=== PATIENT | female | born 1975 | race Caucasian/White ===

== ENCOUNTER → 2016-08-04 | Outpatient (CLI) | payer BC ==
[2016-08-04 13:33] LABS: BASOPHILS # (AUTO) 0.03 10*3/UL; BASOPHILS % (AUTO) 0.3 % (0-1); EOSINOPHILS # (AUTO) 0.04 10*3/UL; EOSINOPHILS % (AUTO) 0.4 % (0-8); HEMATOCRIT 37.6 % (37.0-47.0); HEMOGLOBIN 12.5 g/dL (12.0-16.0); LYMPHOCYTES # (AUTO) 2.26 10*3/uL; MEAN CORPUSCULAR HEMOGLOBIN 30.6 PG (27-31); MEAN CORPUSCULAR HGB CONC 33.2 g/dL (33-37); MEAN CORPUSCULAR VOLUME 91.9 FL (81-99); MEAN PLATELET VOLUME 10.1 FL (7.4-12.2); MONOCYTES # (AUTO) 0.76 10*3/UL (0.3-0.8); MONOCYTES % (AUTO) 7.3 % (5-15); NEUTROPHILS # (AUTO) 7.25 10*3/UL; NEUTROPHILS % (AUTO) 69.9 % (50-80); RED BLOOD COUNT 4.09 10^6/uL (4.20-5.40)
[2016-08-04 13:34] LABS: PLATELET MORPHOLOGY COMMENT NORMAL MORPHOLOGY (NORM); RBC MORPHOLOGY COMMENT NORMAL MORPHOLOGY (NORM); WBC MORPHOLOGY COMMENT NORMAL MORPHOLOGY (NORM)
[2016-08-04 14:03] LABS: BLOOD UREA NITROGEN 14 mg/dL (7-22); BUN/CREATININE RATIO 15.55 (6-20); CALCIUM 7.7 mg/dL (8.7-10.7); EST GLOMERULAR FILTRATION > 60 (>60 ml/min/1.73m(2)); MAGNESIUM 1.9 mg/dL (1.6-2.4); SERUM ALBUMIN 2.3 g/dL (3.5-4.8)
[2016-08-04 14:26] LABS: FREE T4 (FREE THYROXINE) 2.19 ng/dL (0.93-1.71)
== END ==
LOC: MOB LAB 11:24
PROVIDERS: ATTEND Physician Assistant Medical
DX: R55 Syncope and collapse (principal); R10.84 Generalized abdominal pain; R53.83 Other fatigue; R53.1 Weakness; E78.5 Hyperlipidemia, unspecified; R60.0 Localized edema
CPT/HCPCS: 36415; 80053; 82306; 82607; 82746; 83540; 83550; 83735; 84439; 84443; 84590; 84591; 84597; 85025

== ENCOUNTER → 2016-08-15 | Outpatient (CLI) | payer BC ==
[2016-08-15 14:18] LABS: SERUM ALBUMIN 2.4 g/dL (3.5-4.8)
== END ==
LOC: MOB LAB 11:54
PROVIDERS: ATTEND Internal Medicine
DX: E46 Unspecified protein-calorie malnutrition (principal); E88.09 Other disorders of plasma-protein metabolism, not elsewhere classified; Z98.84 Bariatric surgery status
CPT/HCPCS: 36415; 80076; 84481

== ENCOUNTER → 2016-09-12 | Outpatient (CLI) | payer BC ==
[2016-09-12 15:30] LABS: BLOOD UREA NITROGEN 12 mg/dL (7-22); CALCIUM 7.2 mg/dL (8.7-10.7); EST GLOMERULAR FILTRATION > 60 (>60 ml/min/1.73m(2)); SERUM ALBUMIN 1.9 g/dL (3.5-4.8)
== END ==
LOC: MOB LAB 14:19
PROVIDERS: ATTEND Internal Medicine
DX: E46 Unspecified protein-calorie malnutrition (principal); Z98.84 Bariatric surgery status
CPT/HCPCS: 36415; 80053

== ENCOUNTER → 2016-09-21 | Outpatient (CLI) | payer BC ==
[2016-09-21 11:02] LABS: HEMATOCRIT 28.4 % (37.0-47.0); HEMOGLOBIN 8.8 g/dL (12.0-16.0); MEAN CORPUSCULAR HEMOGLOBIN 30.7 PG (27-31); MEAN PLATELET VOLUME 10.5 FL (7.4-12.2); RED BLOOD COUNT 2.87 10^6/uL (4.20-5.40)
[2016-09-21 11:30] LABS: BLOOD UREA NITROGEN 10 mg/dL (7-22); EST GLOMERULAR FILTRATION > 60 (>60 ml/min/1.73m(2))
[2016-09-21 11:31] LABS: CALCIUM 7.6 mg/dL (8.7-10.7); MAGNESIUM 2.1 mg/dL (1.6-2.4); PHOSPHORUS 3.6 mg/dl (2.4-4.3); SERUM ALBUMIN 2.1 g/dL (3.5-4.8)
== END ==
LOC: MOB LAB 10:38
PROVIDERS: ATTEND Internal Medicine
DX: E46 Unspecified protein-calorie malnutrition (principal)
CPT/HCPCS: 80053; 83735; 84100; 84134; 85027

== ENCOUNTER → 2016-09-28 | Outpatient (CLI) | payer BC ==
[2016-09-28 11:39] LABS: HEMOGLOBIN 9.7 g/dL (12.0-16.0); MEAN CORPUSCULAR HEMOGLOBIN 31.5 PG (27-31); MEAN CORPUSCULAR HGB CONC 31.3 g/dL (33-37); MEAN CORPUSCULAR VOLUME 100.6 FL (81-99); MEAN PLATELET VOLUME 9.8 FL (7.4-12.2); RED BLOOD COUNT 3.08 10^6/uL (4.20-5.40)
[2016-09-28 11:42] LABS: BLOOD UREA NITROGEN 15 mg/dL (7-22); CALCIUM 8.7 mg/dL (8.7-10.7); EST GLOMERULAR FILTRATION > 60 (>60 ml/min/1.73m(2)); PHOSPHORUS 4.3 mg/dl (2.4-4.3); SERUM ALBUMIN 3.2 g/dL (3.5-4.8)
== END ==
LOC: MOB LAB 10:50
PROVIDERS: ATTEND Surgery
DX: E46 Unspecified protein-calorie malnutrition (principal)
CPT/HCPCS: 80053; 84100; 85027

== ENCOUNTER → 2016-10-05 | Outpatient (CLI) | payer BC ==
[2016-10-05 12:25] LABS: BLOOD UREA NITROGEN 15 mg/dL (7-22); CALCIUM 8.9 mg/dL (8.7-10.7); EST GLOMERULAR FILTRATION > 60 (>60 ml/min/1.73m(2)); MAGNESIUM 1.9 mg/dL (1.6-2.4); PHOSPHORUS 5.2 mg/dl (2.4-4.3); SERUM ALBUMIN 3.4 g/dL (3.5-4.8)
[2016-10-05 12:28] LABS: HEMOGLOBIN 9.8 g/dL (12.0-16.0); RED BLOOD COUNT 3.19 10^6/uL (4.20-5.40)
[2016-10-05 12:29] LABS: HEMATOCRIT 31.9 % (37.0-47.0); MEAN CORPUSCULAR HEMOGLOBIN 30.7 PG (27-31); MEAN CORPUSCULAR HGB CONC 30.7 g/dL (33-37); MEAN PLATELET VOLUME 10.1 FL (7.4-12.2)
== END ==
LOC: LAB 11:57
PROVIDERS: ATTEND Surgery
DX: E46 Unspecified protein-calorie malnutrition (principal)
CPT/HCPCS: 80053; 83735; 84100; 85027

== ENCOUNTER → 2016-10-12 | Outpatient (CLI) | payer BC ==
[2016-10-12 12:23] LABS: HEMOGLOBIN 9.8 g/dL (12.0-16.0); MEAN CORPUSCULAR HEMOGLOBIN 30.2 PG (27-31); MEAN CORPUSCULAR HGB CONC 30.6 g/dL (33-37); MEAN CORPUSCULAR VOLUME 98.5 FL (81-99); MEAN PLATELET VOLUME 10.5 FL (7.4-12.2); RED BLOOD COUNT 3.25 10^6/uL (4.20-5.40)
[2016-10-12 12:33] LABS: BLOOD UREA NITROGEN 16 mg/dL (7-22); CALCIUM 8.7 mg/dL (8.7-10.7); EST GLOMERULAR FILTRATION > 60 (>60 ml/min/1.73m(2)); MAGNESIUM 1.9 mg/dL (1.6-2.4); SERUM ALBUMIN 3.2 g/dL (3.5-4.8)
== END ==
LOC: LAB 11:51
PROVIDERS: ATTEND Surgery
DX: E46 Unspecified protein-calorie malnutrition (principal)
CPT/HCPCS: 80053; 83735; 84100; 84630; 85027

== ENCOUNTER 2016-10-27 18:22 | Emergency (ER) | payer BC ==
[2016-10-27] MEDS ORDERED: Sodium Chloride 0.9% 1,000 ML PRIMARY IV ONE (18:35)
[2016-10-27] MEDS ORDERED: NORMAL SALINE 10 ML SYRINGE FLUSH IVP PRN (18:35)
[2016-10-27 19:03] LABS: BASOPHILS # (AUTO) 0.08 10*3/UL; BASOPHILS % (AUTO) 1.2 % (0-1); EOSINOPHILS # (AUTO) 0.24 10*3/UL; EOSINOPHILS % (AUTO) 3.6 % (0-8); HEMATOCRIT 28.2 % (37.0-47.0); HEMOGLOBIN 8.7 g/dL (12.0-16.0); MEAN CORPUSCULAR HEMOGLOBIN 28.7 PG (27-31); MEAN CORPUSCULAR HGB CONC 30.9 g/dL (33-37); MEAN CORPUSCULAR VOLUME 93.1 FL (81-99); MEAN PLATELET VOLUME 9.8 FL (7.4-12.2); MONOCYTES # (AUTO) 0.73 10*3/UL (0.3-0.8); RED BLOOD COUNT 3.03 10^6/uL (4.20-5.40)
[2016-10-27 19:06] LABS: PLATELET MORPHOLOGY COMMENT NORMAL MORPHOLOGY (NORM); RBC MORPHOLOGY COMMENT NORMAL MORPHOLOGY (NORM); WBC MORPHOLOGY COMMENT NORMAL MORPHOLOGY (NORM)
--- NOTE | 2016-10-27 19:10 | EKG ---
[address] [address] Measurements Intervals [place] Rate: 118 P: 67 [place]: 130 QRS: 65 QRSD: 74 T: 52 QT: 301 QTc: 371 Interpretive Statements SINUS TACHYCARDIA POSSIBLE LEFT ATRIAL ENLARGEMENT ABNORMAL RHYTHM ECG No previous ECG available for comparison Electronically Signed On 10-27-16 19:48:13 MDT by Graham Ann [id number]
[2016-10-27 19:14] LABS: BLOOD UREA NITROGEN 11 mg/dL (7-22); CALCIUM 8.8 mg/dL (8.7-10.7); EST GLOMERULAR FILTRATION > 60 (>60 ml/min/1.73m(2)); MAGNESIUM 1.8 mg/dL (1.6-2.4); SERUM ALBUMIN 3.1 g/dL (3.5-4.8)
[2016-10-27] MEDS ORDERED: BUMETANIDE 1 MG TABLET PO ONE (20:02)
[2016-10-27 20:06] VITALS: RESP 18; TEMP 98.4
--- NOTE | 2016-10-27 21:33 | PDOC ---
General Adult HPI - General Chief Complaint: General Medical Stated Complaint: RETAINING FLUID, PCP SAYS LOW HEMOGLOBIN Date Seen by Provider: 10/27/16 Time Seen by Provider: 18:25 Source: POSITIVE: Patient, Spouse Exam Limitations: POSITIVE: No limitations Nurse's Notes Reviewed & Considered: Yes - History of Present Illness Initial Comment: The patient is a 41-year-old female who presents to the emergency department primarily because of concern of a low hemoglobin done on a blood draw yesterday. She also is retaining extra fluid. She has been struggling with malnutrition and has a history of previous gastric bypass surgery 7 years ago. She reports that in September of this year she was hospitalized at [facility] in [place] and started on TPN. Dr. Garcia, the bariatric surgeon in [place], has been managing her TPN. She reports that she has had swelling in her lower extremities intermittently for the past 9 months or so. Her swelling had improved significantly when she was in the hospital in [place] however over the past couple of weeks has gradually been getting worse. Over the last 24 hours she has had marked worsening in her edema which now extends into her upper legs and even to her arms. She had routine blood work done for follow-up on her TPN yesterday. Her hemoglobin was reported at 6.2. It was recommended that she be evaluated here in the emergency room. She denies any blood in her urine or stool. She has had previous hysterectomy. She is unaware of recent issues with anemia. Have you received a tetanus shot in the past 10 years?: Yes - Patient Home Medications Home Medications: Home Medications Cyanocobalamin Inj [Vitamin B-12 Inj] 1 ml IM 2XW #1 vial 11/10/15 Estradiol [Estradiol Transdermal Patch] 1 patch TRANSDERM 2XW #8 patch 11/10/15 Tizanidine HCl 1 cap PO QD #90 cap 11/10/15 Amitriptyline HCl 2 tab PO QHS tab 06/24/16 Ketorolac Tromethamine 60 mg IM QID PRN #20 vial 06/24/16 Promethazine HCl 1 tab-cap PO Q4H PRN #60 tab-cap 06/24/16 Rizatriptan Benzoate [Maxalt] 10 mg PO DAILY #12 tab 06/24/16 Syringe W-Needle,Disposab,3 ml [Precisionglide] 1 each MC QD PRN #10 box Triamcinolone Acetonide 454 gm TOPICAL BID #1 tub 10/25/16 Bumetanide Tab [Bumex Tab] 1 mg PO DAILY #20 tablet 10/27/16 Potassium Chloride 10 meq PO DAILY #20 tab 10/27/16 - Patient Allergies Allergies/Adverse Reactions: Allergies Allergy/AdvReac Type Severity Reaction Status Date / Time ferumoxytol [From Feraheme] Allergy Severe Anaphylaxis Verified 10/27/16 19:36 clarithromycin [From Biaxin] Allergy Intermediate NAUSEA Verified 10/27/16 19:36 furosemide [From Lasix] Allergy Intermediate HIVES Verified 10/27/16 19:36 Penicillins Allergy Intermediate RASH Verified 10/27/16 19:36 acetazolamide AdvReac Intermediate nausea, Verified 10/27/16 19:36 [From Diamox Sequels] vomiting Pain Contract AdvReac Unknown NOT Uncoded 10/27/16 19:36 APPLICABLE Past Medical History - heen HEENT History: Denies History Cardiovascular History: Denies History Respiratory History: Denies History Gastrointestinal History: Other (please comment) Additional Gastrointestinal History: BARIATRIC SURGERY IN 2009, DUODENAL SWITCH Genitourinary History: Denies History Endocrine History: Type 2 Diabetes (diet), Other (please comment) Additional Endocrine History: TYPE 2 DIABETES WHEN SHE WAS OBESE PRIOR TO BARIATRIC SURGERY Musculoskeletal History: Denies History Prosthesis or Implant: No Additional Musculoskeletal History: PT STATES "HAS HAD MIGRAINES SINCE I WAS A YOUNG GIRL" Neurological History: Migraines Blood Disorders: Denies History Psychiatric History: Depression, Anxiety Disorders Additional Psychiatric History: ANOREXIA History of Sexually Transmitted Diseases: No Female Reproductive History: Denies History Obstetrical History: Denies History Cancer History: Denies History In Past Year Been Physically Harmed or Verbally Threatened: No History of MDRO: No History of Other Communicable Diseases: No Tobacco Use: Current Every Day Smoker Alcohol Use: None Substance Use Type: None Previous Surgical History: Yes Type / Date of Surgery: ABOVE Anesthesia Reactions: No Malignant Hyperthermia: No Significant Family History: No pertinent family hx Past Medical History Reviewed: Reviewed - No Changes ROS - Limitations ROS Limitations: No Limitations Constitution: DENIES: Chills, Fever Cardiovascular: REPORTS: Heart Palpitations Respiratory: REPORTS: Shortness Of Breath Neurological: REPORTS: Dizziness. DENIES: Fainting Gastrointestinal: DENIES: Abdominal Pain, Vomitting, Black Stools, Bloody Stools Musculoskeletal: REPORTS: Lower Extremity Swelling Eyes: REPORTS: Denies Symptoms ENT: REPORTS: Denies Symptoms Skin: REPORTS: Rash (Chronic rash for the past 6 months) General Adult Exam - General Appearance General Appearance: POSITIVE: Alert, Cooperative, No Acute Distress, Other (She does appear chronically ill and pale) - HEENT HEENT: POSITIVE: Head Inspection Nml, Eyes Inspection Nml, Ears Inspection Nml, Pharynx Inspect. Nml - Neck Neck: POSITIVE: Normal Inspection - Respiratory Respiratory: POSITIVE: No Respiratory Distress, Breath Sounds Normal - Cardiovascular Cardiovascular: POSITIVE: Regular Rate & Rhythm, No Murmur Peripheral Pulses: Dorsalis-pedis (R): 2+, Dorsalis-pedis (L): 2+ - Abdomen Abdomen: Soft: (All Quadrants), Denies Tenderness: (All Quadrants), No Distention: (All Quadrants) - Skin Skin: POSITIVE: Pallor - Extremities Extremity: Normal ROM: (All Extremities) Additional Extremities Details: She does have marked edema in the lower extremities and some edema in her upper extremities - Neurological / Psychological Neurological: POSITIVE: Oriented X3, Motor Normal, Sensation Normal General Adult Progress - Results Reviewed by me Lab Results Reviewed: Yes Lab Results:: Laboratory Results 10/27/16 Range/Units 18:54 WBC 6.66 (4.8-10.8) 10^3/uL RBC 3.03 L (4.20-5.40) 10^6/uL Hgb 8.7 L (12.0-16.0) g/dL Hct 28.2 L (37.0-47.0) % MCV 93.1 (81-99) FL MCH 28.7 (27-31) PG MCHC 30.9 L (33-37) g/dL RDW Std Deviation 48.3 (39-50) fL RDW Coeff of [place] 14.8 H (11.5-14.5) % Plt Count 358 H (140-350) 10*3/uL MPV 9.8 (7.4-12.2) FL Immature Gran % (Auto) 0.2 (0-5) % Neut % (Auto) 57.0 (50-80) % Lymph % (Auto) 27.0 (10-50) % [place] % (Auto) 11.0 (5-15) % Eos % (Auto) 3.6 (0-8) % Baso % (Auto) 1.2 H (0-1) % Immature Gran # (Auto) 0.01 10*3/UL Neut # (Auto) 3.80 10*3/UL Lymph # (Auto) 1.80 10*3/uL [place] # (Auto) 0.73 (0.3-0.8) 10*3/UL Eos # (Auto) 0.24 10*3/UL Baso # (Auto) 0.08 10*3/UL WBC Morphology Comment Normal morphology (NORM) Plt Morphology Comment Normal morphology (NORM) RBC Morph Comment Normal morphology (NORM) Sodium 137 (135-145) meq/L Potassium 3.9 (3.8-5.2) meq/L Chloride 105 (98-112) meq/L Carbon Dioxide 27 (23-33) meq/L Anion Gap 5 (5-20) BUN 11 (7-22) mg/dL Creatinine 0.5 (0.50-1.20) mg/dL Estimated GFR > 60 (>60 ml/min/1.73m(2)) BUN/Creatinine Ratio 22.00 H (6-20) Glucose 90 (78-110) mg/dL Calculated Osmolality 282.0 (267-292) mOsm/kg Calcium 8.8 (8.7-10.7) mg/dL Magnesium 1.8 (1.6-2.4) mg/dL Total Bilirubin 0.2 L (0.3-1.2) mg/dL AST 18 (8-39) IU/L ALT 30 (9-52) IU/L Alkaline Phosphatase 61 (38-126) IU/L NT-Pro-B Natriuret Pep 198 H (0-125) PG/ML Total Protein 5.7 L (6.1-8.0) g/dL Albumin 3.1 L (3.5-4.8) g/dL Globulin 2.6 (2.50-4.10) g/dL Albumin/Globulin Ratio 1.10 L (1.3-2.0) mg/g TSH 1.49 (0.2700-4.2000) uIU/mL Blood Type B POSITIVE Antibody Screen Negative Crossmatch See Detail EKG Interpreted/Reviewed By Me:: Yes EKG Interpretation:: POSITIVE: Normal Intervals, Normal QRS, Normal ST/T, Other (Sinus tachycardia with no acute changes otherwise) - Patient's Progress MDM / ED Course: The patient's hemoglobin done yesterday was 6.2. Repeat blood work was obtained and she was typed and crossed. Blood work from today however reveals a hemoglobin of 8.7. Review of recent labs reveals that for the past several months she has had a hemoglobin of 8.6-9. The remainder of her blood work from today is otherwise unremarkable except for low protein and albumin which has been an ongoing issue as well. The hemoglobin of 6.2 yesterday at this point appears to most likely be an error. She is chronically anemic however she is not at a level that would necessitate blood transfusion at this time. She also has marked edema in her extremities. The exact etiology of this is unclear however may be related to her malnutrition and TPN. She has a reported allergy to Lasix. This was discontinued last fall secondary to a rash that she had. She reports however that she continues to have a rash ever since then and it is unclear to me whether this was actually an allergic reaction to the Lasix or not. After discussion with the patient we decided to try Bumex as a diuretic. She was given a dose of 1 mg by mouth here in the emergency room. She was monitored here and demonstrated no evidence of allergic reaction. She was prescribed Bumex 1 mg daily along with potassium 10 mEq daily. She routinely has her blood checked on Wednesdays. She is advised to contact Dr. Garcia's office tomorrow and will follow-up with Dr. Velásquez next week as well. She will return to the emergency room if any worsening or change in symptoms. - Consult Counseled: POSITIVE: Patient, Family, RE: Lab Results, RE: DX, RE: Need for F/U Patient Care Time - Estimated PCT Patient Care Time (In Minutes): 35 Vital Signs - Recent Vital Signs Vital Signs: Vital Signs (Last 8 hours) Temp Pulse Resp BP Pulse Ox 10/27/16 18:22 98.4 F 122 H 18 116/70 97 - VS Reviewed Vital Signs Reviewed: Yes Discharge Clinical Impression: Anemia, Edema Discharge Disposition: Discharged to Home Condition: Stable Prescriptions / Orders: Bumetanide Tab [Bumex Tab] 1 mg PO DAILY #20 tablet Potassium Chloride 10 meq PO DAILY #20 tab Patient Instructions Given at Discharge: Anemia (ED), Edema (ED) Additional Instructions: The blood test done here in the emergency department today shows a hemoglobin of 8.7. This level is consistent with where your level has been for the past several months. I suspect that sure measurement of 6.2 yesterday may have been an error. The remainder of your blood work was unremarkable with normal electrolytes, kidney function and liver function. Your protein levels remain low from the malnutrition. The exact cause of your swelling is unclear however is likely related to the malnutrition and possibly the TPN. He had been started on Bumex 1 mg daily which is a diuretic. This will need to be taken with potassium 10 mEq daily. This will hopefully help with some of the extra swelling that you currently have. Recommend that she contact Dr. Garcia tomorrow to discuss the TPN issue. Recommend follow-up with Dr. Velásquez next week. Return to the emergency room if any worsening or change in symptoms. Follow Up With: EDUARDO VELÁSQUEZ [Primary Care Provider] -
[2016-10-28] MEDS ORDERED: Sodium Chloride 0.9% 1,000 ML ONE (05:52)
== END 2016-10-27 20:50 | disposition home or self-care (01) ==
LOC: ER 18:22
DX: R60.0 Localized edema (principal); D64.9 Anemia, unspecified
CPT/HCPCS: 80053; 83735; 83880; 84443; 85025; 86850; 86900; 86901; 86922; 93005; 93010; 99283; J7030

== ENCOUNTER → 2016-11-02 | Outpatient (CLI) | payer BC ==
[2016-11-02 17:49] LABS: HEMATOCRIT 32.3 % (37.0-47.0); HEMOGLOBIN 10.2 g/dL (12.0-16.0); MEAN CORPUSCULAR HEMOGLOBIN 28.5 PG (27-31); MEAN CORPUSCULAR HGB CONC 31.6 g/dL (33-37); MEAN CORPUSCULAR VOLUME 90.2 FL (81-99); RED BLOOD COUNT 3.58 10^6/uL (4.20-5.40)
[2016-11-02 18:28] LABS: BLOOD UREA NITROGEN 3 mg/dL (7-22); CALCIUM 8.6 mg/dL (8.7-10.7); EST GLOMERULAR FILTRATION > 60 (>60 ml/min/1.73m(2)); MAGNESIUM 2.1 mg/dL (1.6-2.4); SERUM ALBUMIN 3.5 g/dL (3.5-4.8)
== END ==
LOC: LAB 16:47
PROVIDERS: ATTEND Surgery
DX: E46 Unspecified protein-calorie malnutrition (principal); Z45.2 Encounter for adjustment and management of vascular access device
CPT/HCPCS: 80053; 83735; 84100; 84134; 85027

== ENCOUNTER 2018-03-12 16:15 | Inpatient (IN) ==
[2018-03-12] MEDS ORDERED: Sodium Chloride 0.9% 1,000 ML PRIMARY IV ONE (16:33)
[2018-03-12] MEDS ORDERED: IPRATROPIUM/ALBUTEROL SULFATE 3 ML NEB NEB ONE ×3 (16:35→19:56)
[2018-03-12] MEDS ORDERED: methylPREDNISolone 125 MG/2 ML VIAL IVP ONE (16:35)
[2018-03-12 16:58] LABS: Hematocrit [HCT] 26.4 % (37.0-47.0); Hemoglobin [HGB] 7.2 g/dL (12.0-16.0); MEAN CORPUSCULAR HEMOGLOBIN 17.6 PG (27-31); MEAN CORPUSCULAR HGB CONC 27.3 g/dL (33-37); MEAN CORPUSCULAR VOLUME 64.7 FL (81-99); MEAN PLATELET VOLUME 9.7 FL (7.4-12.2); RED BLOOD COUNT 4.08 10^6/uL (4.20-5.40)
[2018-03-12 17:13] LABS: WBC MORPHOLOGY COMMENT NORMAL MORPHOLOGY (NORM)
[2018-03-12 17:14] LABS: BAND NEUTROPHILS % 0 % (0-10); MONOCYTES % (MANUAL) 5 % (0-12); NEUTROPHILS % (MANUAL) 69 % (50-80); PLATELET MORPHOLOGY COMMENT SEE COMMENTS (NORM); RBC MORPHOLOGY COMMENT NORMAL MORPHOLOGY (NORM)
[2018-03-12 17:15] LABS: BASOPHILS % (MANUAL) 1 % (0-1); BLOOD UREA NITROGEN 4 mg/dL (7-22); BUN/CREATININE RATIO 6.66 (6-20); EOSINOPHILS % (MANUAL) 4 % (0-8); METAMYELOCYTES % 0 %; MYELOCYTES % 0 %; PROMYELOCYTES % 0 %; SERUM ALBUMIN 3.4 g/dL (3.5-4.8)
[2018-03-12 17:50] LABS: VENOUS PH 7.37 (7.32-7.42)
--- NOTE | 2018-03-12 18:00 | PDOC ---
HPI - History of Present Illness History of Present Illness: This very nice 42-year-old female which is been sick for a few days with shortness of breath was seen in the ER yesterday refused admission left AMA. Was given Rocephin and Zithromax and oxygen. Comes back today feeling a little worse x-ray looks a little worse. Patient will be admitted to the ICU for atypical pneumonia is not needing much supportive care at present time but because of the groundglass appearance and other comorbidities she will be watc hed in the ICU and if needed transferred for possible bronchoscopy. I discussed this with ICU eICU physician which agrees with admission to the ICU and patient needs to be watched very closely because of her anemia as well as 7.2 hemoglobin which is chronic. Vital signs are stable at present time we'll hold on transfusion denies chest pain Past Medical History Medical History: 1. Chronic migraine headaches. 2. History of diabetes before her gastric bypass, now on no medication. 3. Elevated PTH and low vitamin D Surgical History: 1. History of a duodenal switch for gastric bypass in 2009. 2. Hysterectomy. 3. History of Lap- Band in 2008 Family History: Reviewed an Not Pertinent Pertinent Family History: No significant history for lupus Past Social History: Patient currently does taper, does not drink alcohol. 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 Tobacco Use: Former Smoker In the Past 12 Months, Have Used or Abuse Any of the Following Substance: None Medication / Allergies Home Medications: Home Medications Medication Instructions Recorded Confirmed Type buprenorphine 8 mg-naloxone 2 mg 1 ea SL TID-QID ea 11/29/16 03/12/18 History sublingual film baclofen 10 mg tablet 10 mg PO QHS #30 tab 02/05/18 03/12/18 Rx duloxetine 30 mg capsule,delayed 30 mg PO QDAY #30 cap 02/05/18 03/12/18 Rx release hydroxyzine pamoate 50 mg capsule 50 mg PO QHS PRN #30 cap 02/05/18 03/12/18 Rx ketorolac 60 mg/2 mL intramuscular 60 mg IM QID PRN #3 vial 02/05/18 03/12/18 Rx solution promethazine 25 mg tablet 25 mg PO Q6H PRN #120 tab 02/05/18 03/12/18 Rx sumatriptan 50 mg tablet 50 mg PO Q2-4H PRN #10 tab 02/05/18 03/12/18 Rx syringe with needle 1 mL 25 gauge See Rx Instructions MISCELLANEOUS 02/05/18 Rx x 1" QD PRN #10 box tizanidine 4 mg capsule 4 mg PO QD #90 cap 02/05/18 03/12/18 Rx gabapentin 100 mg capsule 200 mg PO TID #90 cap 02/23/18 03/12/18 Rx Syringe,Safety with Needle,3Ml 0 unit .ROUTE .MEDSUPPLY 03/11/18 03/12/18 History [Ulticare Safety Syringe] albuterol sulfate HFA 90 1 puff INH Q6H PRN #18 g 03/12/18 03/12/18 Rx mcg/actuation aerosol inhaler Allergies/Adverse Reactions: Allergies Allergy/AdvReac Type Severity Reaction Status Date / Time ferumoxytol [From Feraheme] Allergy Severe Anaphylaxis Verified 03/12/18 16:16 clarithromycin [From Biaxin] Allergy Intermediate NAUSEA Verified 03/12/18 16:16 furosemide [From Lasix] Allergy Intermediate HIVES Verified 03/12/18 16:16 Penicillins Allergy Intermediate RASH Verified 03/12/18 16:16 acetazolamide AdvReac Intermediate nausea, Verified 03/12/18 16:16 [From Diamox Sequels] vomiting Pain Contract AdvReac Unknown NOT Uncoded 03/12/18 16:16 APPLICABLE Review of Systems - Review of Systems All Systems: Reviewed & No Additional Complaints Except as Stated - Respiratory Respiratory: REPORTS: Cough, Dyspnea At Rest - Cardiovascular Cardiovascular: DENIES: Negative System Review, Chest Pain, Edema, Syncope, Palpitations, Orthopnea, Paroxysmal Nocturnal Dyspnea, Other, See HPI Exam - Vitals Vital Signs: Vital Signs Temperature 99.7 F Temperature Source Temporal Artery Scan Pulse Rate [Pulse Oximeter] 100 Pulse Rate 92 Respiratory Rate 18 Blood Pressure [Right Arm] 106/59 Pulse Ox 99 Oxygen Flow Rate 2 Oxygen Delivery Method Room Air Height 6 ft Weight 195 lb - General General Appearance: No Acute Distress, Cooperative - Respiratory Respiratory Exam: POSITIVE: Decreased Breath Sounds, Crackles - Cardiovascular Cardiovascular Exam: POSITIVE: RRR, No Murmur, No Clicks, No Gallops, No Rubs, PMI Non-Displaced - GI/Abdominal GI/Abdominal Exam: POSITIVE: Normal Bowel Sounds, Non Tender, Non Distended, Soft, No Masses, No Hepatomegaly, No Splenomegaly, No Organomegaly - Extremities Extremities Exam: POSITIVE: No Clubbing Present, No Edema Present, No Cyanosis Present Results - Labs CBC and BMP: 03/12/18 16:40 03/12/18 16:40 Assessment and Plan - Patient Problems (1) Atypical pneumonia Current Visit: Yes Status: Acute Comment: Send for Legionella influenza A and B- start Rocephin 2 g and ceftriaxone IV fluids consult eICU admit patient to ICU check ABG Code(s): J18.9 - Pneumonia, unspecified organism (2) Pulmonary infiltrates Current Visit: Yes Status: Acute Comment: See above Code(s): R91.8 - Other nonspecific abnormal finding of lung field
--- NOTE | 2018-03-12 18:13 | PDOC ---
Upper Respiratory HPI - General Chief Complaint: Respiratory Complaint Stated Complaint: PNEUMONIA Date Seen by Provider: 03/12/18 Time Seen by Provider: 16:20 Source: POSITIVE: Patient Exam Limitations: POSITIVE: No limitations Nurse's Notes Reviewed & Considered: Yes - History of Present Illness Initial Comments: The patient is a 42-year-old female who presents to the emergency department with complaints of worsening cough and shortness of breath. She was seen here in the emergency department yesterday with complaints of a 3 to four-day history of cough and congestion. She was diagnosed with an atypical pneumonia and had been advised to be admitted to the hospital.. She had refused at that time secondary to concerns about insurance primarily. She ended up leaving [facility]. She had been discharged home on oxygen. She had received a dose of Rocephin and had been started on Zithromax. She has been using neb treatments at home as well. She reports however that today she feels like she has worsening shortness of br eath and continued cough. Her cough is been primarily dry and she feels like she cannot cough out the phlegm. She denies fever at home however she has a temperature of 99.6 on arrival here. She states that she had an episode of pneumonia earlier this year and was in the hospital in [place]. She had recovered after that episode and had not been on oxygen at home previously. She does have a history of chronic anemia thought to be secondary to vitamin and iron deficiencies related to previous gastric bypass surgery. She did receive an iron infusion last week. - Patient Home Medications Home Medications: Home Medications buprenorphine 8 mg-naloxone 2 mg sublingual film 1 ea SL TID-QID ea 11/29/16 baclofen 10 mg tablet 10 mg PO QHS #30 tab 02/05/18 duloxetine 30 mg capsule,delayed release 30 mg PO QDAY #30 cap 02/05/18 hydroxyzine pamoate 50 mg capsule 50 mg PO QHS PRN #30 cap 02/05/18 ketorolac 60 mg/2 mL intramuscular solution 60 mg IM QID PRN #3 vial 02/05/18 promethazine 25 mg tablet 25 mg PO Q6H PRN #120 tab 02/05/18 sumatriptan 50 mg tablet 50 mg PO Q2-4H PRN #10 tab 02/05/18 syringe with needle 1 mL 25 gauge x 1" See Rx Instructions MISCELLANEOUS QD PRN #10 box 11/26/18 tizanidine 4 mg capsule 4 mg PO QD #90 cap 02/05/18 gabapentin 100 mg capsule 200 mg PO TID #90 cap 02/23/18 Syringe,Safety with Needle,3Ml [Ulticare Safety Syringe] 0 unit .ROUTE .MEDSUPPLY 03/11/18 albuterol sulfate HFA 90 mcg/actuation aerosol inhaler 1 puff INH Q6H PRN #18 g 03/12/18 - Patient Allergies Allergies/Adverse Reactions: Allergies Allergy/AdvReac Type Severity Reaction Status Date / Time ferumoxytol [From Feraheme] Allergy Severe Anaphylaxis Verified 03/12/18 16:16 clarithromycin [From Biaxin] Allergy Intermediate NAUSEA Verified 03/12/18 16:16 furosemide [From Lasix] Allergy Intermediate HIVES Verified 03/12/18 16:16 Penicillins Allergy Intermediate RASH Verified 03/12/18 16:16 acetazolamide AdvReac Intermediate nausea, Verified 03/12/18 16:16 [From Diamox Sequels] vomiting Pain Contract AdvReac Unknown NOT Uncoded 03/12/18 16:16 APPLICABLE Past Medical History - heen HEENT History: Denies History Cardiovascular History: Denies History Respiratory History: Other (please comment) Additional Respiratory History: SEPTIC PNEUMONIA SUMMER 2017 Gastrointestinal History: Other (please comment) Additional Gastrointestinal History: BARIATRIC SURGERY IN 2009, DUODENAL SWITCH Genitourinary History: Denies History Endocrine History: Type 2 Diabetes (diet), Other (please comment) Additional Endocrine History: TYPE 2 DIABETES WHEN SHE WAS OBESE PRIOR TO BARIATRIC SURGERY Musculoskeletal History: Denies History Prosthesis or Implant: No Additional Musculoskeletal History: PT STATES "HAS HAD MIGRAINES SINCE I WAS A YOUNG GIRL" Neurological History: Migraines, Other (please comment) Additional Neurological History: PT STATES "HAS HAD MIGRAINES SINCE I WAS A YOUNG GIRL" Blood Disorders: Denies History Psychiatric History: Depression, Anxiety Disorders, Substance Abuse Additional Psychiatric History: RECOVERING DRUG ADDICT (SOBER X2 YEARS) History of Sexually Transmitted Diseases: No Cancer History: Denies History In Past Year Been Physically Harmed or Verbally Threatened: No History of MDRO: No History of Other Communicable Diseases: No Tobacco Use: Former Smoker Alcohol Use: None In the Past 12 Months, Have Used or Abuse Any Substance: None Previous Surgical History: Yes Type / Date of Surgery: COMPLETE HYSTERECTOMY, X2, DUODENAL SWITCH BARIATRIC SURGERY, CHOLECYSTECTOMY Anesthesia Reactions: No Malignant Hyperthermia: No Significant Family History: No pertinent family hx Past Medical History Reviewed: Reviewed - No Changes ROS - Limitations ROS Limitations: No Limitations Constitution: REPORTS: Chills. DENIES: Fever Cardiovascular: REPORTS: Denies Cardiac Symptoms Respiratory: REPORTS: Cough Non Productive, Shortness Of Breath, Wheezing Neurological: REPORTS: Denies Neuro Symptoms Gastrointestinal: REPORTS: Denies GI Symptoms Musculoskeletal: REPORTS: Denies MS Symptoms Eyes: REPORTS: Denies Symptoms ENT: REPORTS: Denies Symptoms Skin: DENIES: Rash Upper Respiratory/Fever Exam - General Appearance General Appearance: REPORTS: Other (The patient is pale and does appear to be acutely ill) - HEENT HEENT: POSITIVE: Head Inspection Nml, Eyes Inspection Nml, Ears Inspection Nml, Dry Mucous Membranes - Neck Neck: REPORTS: Normal Inspection - Respiratory Respiratory: REPORTS: Other (Patient has audible rhonchi bilaterally, respirations are unlabored) - Abdomen Abdomen: Soft: (All Quadrants), Denies Tenderness: (All Quadrants), No Guarding: (All Quadrants), No Rebound: (All Quadrants), No Distention: (All Quadrants) - Cardiovascular Cardiovascular: REPORTS: Regular Rate and Rhythm, Heart Sounds Normal - Skin Skin: REPORTS: Intact, No Rash - Extremities Extremity: Normal ROM: (All Extremities), Normal Inspection: (All Extremities) - Neurological / Psychological Neurological: POSITIVE: Oriented X3, 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 Lab Results Reviewed by Me: Yes CBC and BMP: 03/12/18 16:40 03/12/18 16:40 Lab Results:: Laboratory Results 03/12/18 03/12/18 03/12/18 16:40 16:40 16:40 WBC 8.92 RBC 4.08 L Hgb 7.2 L Hct 26.4 L MCV 64.7 L MCH 17.6 L MCHC 27.3 L RDW Std Deviation 59.1 H RDW Coeff of Sowmya 30.4 H Plt Count 334 MPV 9.7 Neutrophils % (Manual) 69 Band Neutrophils % 0 Lymphocytes % (Manual) 21 Monocytes % (Manual) 5 Eosinophils % (Manual) 4 Basophils % (Manual) 1 Metamyelocytes % 0 Myelocytes % 0 Promyelocytes % 0 Blast Cells 0 WBC Morphology Comment Normal morphology Plt Morphology Comment See comments RBC Morph Comment Normal morphology VBG pH VBG pCO2 VBG HCO3 VBG Base Excess Sodium 138 Potassium 3.4 L Chloride 105 Carbon Dioxide 27 Anion Gap 6 BUN 4 L Creatinine 0.6 Estimated GFR > 60 BUN/Creatinine Ratio 6.66 Glucose 91 Calculated Osmolality 282.0 Lactic Acid 2.2 H Calcium 8.3 L Magnesium 2.3 Total Bilirubin 0.4 AST 112 H ALT 104 H Alkaline Phosphatase 145 H C-Reactive Protein 4.6 H Total Protein 5.8 L Albumin 3.4 L Globulin 2.4 L Albumin/Globulin Ratio 1.40 03/12/18 16:42 WBC RBC Hgb Hct MCV MCH MCHC RDW Std Deviation RDW Coeff of Sowmya Plt Count MPV Neutrophils % (Manual) Band Neutrophils % Lymphocytes % (Manual) Monocytes % (Manual) Eosinophils % (Manual) Basophils % (Manual) Metamyelocytes % Myelocytes % Promyelocytes % Blast Cells WBC Morphology Comment Plt Morphology Comment RBC Morph Comment VBG pH 7.37 VBG pCO2 43 L VBG HCO3 25 VBG Base Excess 0 Sodium Potassium Chloride Carbon Dioxide Anion Gap BUN Creatinine Estimated GFR BUN/Creatinine Ratio Glucose Calculated Osmolality Lactic Acid Calcium Magnesium Total Bilirubin AST ALT Alkaline Phosphatase C-Reactive Protein Total Protein Albumin Globulin Albumin/Globulin Ratio - Patient's Progress MDM / ED Course: The patient was hypoxic on room air however oxygen saturations improved into the mid-90s on 2-1/2 L. She was very wheezy and received a DuoNeb shortly after arrival with subjective improvement. She was febrile on arrival with temperature of 99.6. Blood cultures were repeated and a lactate was drawn which was mildly elevated at 2.2. Her initial venous blood gas showed a normal pH and normal PCO2. Chest x-ray shows worsening interstitial infiltrates per radiologist. Lab work reveals normal white blood cell count. Her hemoglobin is 7.2. Her hemoglobin yesterday was 7.7 and last week was 6.8. She is ch ronically anemic as above. The patient is agreeable to being admitted to the hospital at this point. Dr. Georges was subsequently contacted and has agreed to admit the patient to the ICU. The patient did receive Solu-Medrol 125 mg she was here in the emergency department. After the patient was admitted while she was still the emergency department she had developed some increased wheezing and shortness of breath after a coughing episode. Her oxygen saturations had dipped down into the low 80s and her oxygen was turned up and she received a DuoNeb with improvement of her oxygen saturations back up into the high 90s. She was subsequently admitted to the floor to ICU for continued close monitoring and treatment. - Consult Counseled: POSITIVE: Patient, RE: Lab Results, RE: Radiology Results, RE: DX, RE: Need for F/U Patient Care Time - Estimated PCT Patient Care Time (In Minutes): 35 Vital Signs - Recent Vital Signs Vital Signs: Vital Signs (Last 8 hours) Temp Pulse Pulse Resp BP Pulse Ox 03/12/18 19:54 20 97 03/12/18 19:53 22 82 03/12/18 19:46 98.8 F 96 20 136/68 94 03/12/18 16:49 92 18 99 - VS Reviewed Vital Signs Reviewed: Yes Discharge Clinical Impression: Anemia, Atypical pneumonia, Malnutrition Discharge Disposition: Admit to Inpatient Condition: Fair Date Decision to Admit to Inpatient: 03/13/18 Time Decision to Admit to Inpatient: 17:40
--- NOTE | 2018-03-12 18:27 | DI ---
XR CXR 1VW,03/12/2018 4:33 PM: Clinical History: Cough and hypoxia. Previous Exam: None at this facility. Findings: A single frontal radiograph of the chest is obtained, and demonstrate increased airspace disease with in lung bases bilaterally. There is some increased interstitial markings in the hilum with peribronchial cuffing. There is no evidence of pneumothorax. Impression: Diffuse bilateral airspace disease. This could represent edema, pneumonia or a viral illness. Correla te clinically.
[2018-03-12] MEDS ORDERED: BUPRENORPHINE SL SCH (19:46)
[2018-03-12] MEDS ORDERED: KETOROLAC 60 MG/2 ML VIAL IM PRN (19:46)
[2018-03-12] MEDS ORDERED: LIDOCAINE W/ SODIUM BICARB 0.5 ML SYR SUBD PRN (19:46)
[2018-03-12] MEDS: Sodium Chloride 0.9% 1,000 ML PRIMARY IV SCH (20:26)
[2018-03-12] MEDS ORDERED: Pneumococcal Vacc 13 Syringe 0.5 ML DISP.SYRIN IM ONE (21:25)
[2018-03-12] MEDS ORDERED: Influenza 18-19 Vaccine (6mo+) 60 MCG/0.5 ML SYRINGE IM ONE (21:25)
[2018-03-12] MEDS: cefTRIAXone Inj 2 GM in Sodium Chloride 0.9% 100 ML IV SCH (21:54)
[2018-03-12] MEDS: BACLOFEN 20 MG TABLET PO SCH (21:56)
[2018-03-12] MEDS: GABAPENTIN 100 MG CAPSULE PO SCH (21:56)
[2018-03-12] MEDS: HYDROXYZINE PAMOATE 25 MG CAPSULE PO PRN (21:56)
[2018-03-12 21:58] LABS: ABG BASE EXCESS -4 MMOL/L (-2-2); ABG OXYGEN SATURATION 95 % (90-100); ABG PCO2 34 MMHG (34-38); ABG PH 7.39 (7.35-7.45); ABG PO2 77 MMHG (65-75); ALLEN TEST Y; COLLECTION SITE RR
[2018-03-13] MEDS ORDERED: tiZANidine Tab 4 MG TAB PO ONE (00:33)
[2018-03-13] MEDS ORDERED: POTASSIUM CHLORIDE 20 MEQ TAB PO ONE (00:48)
[2018-03-13] MEDS: IPRATROPIUM/ALBUTEROL SULFATE 3 ML NEB NEB PRN ×4 (03:52→18:58)
[2018-03-13] MEDS: ALBUTEROL SULFATE 8.5 GM HFA INHALER INH PRN ×4 (03:53→22:32)
[2018-03-13 04:58] LABS: BASOPHILS # (AUTO) 0 10*3/UL; BASOPHILS % (AUTO) 0 % (0-1); EOSINOPHILS # (AUTO) 0 10*3/UL; EOSINOPHILS % (AUTO) 0 % (0-8); Hematocrit [HCT] 24.9 % (37.0-47.0); LYMPHOCYTES # (AUTO) 1.24 10*3/uL; MEAN CORPUSCULAR HEMOGLOBIN 17.5 PG (27-31); MEAN CORPUSCULAR HGB CONC 26.9 g/dL (33-37); MONOCYTES % (AUTO) 3.5 % (5-15); NEUTROPHILS # (AUTO) 7.08 10*3/UL; NEUTROPHILS % (AUTO) 81.9 % (50-80); RED BLOOD COUNT 3.83 10^6/uL (4.20-5.40)
[2018-03-13 05:39] LABS: Hemoglobin [HGB] 6.7 g/dL (12.0-16.0); WBC MORPHOLOGY COMMENT NORMAL MORPHOLOGY (NORM)
[2018-03-13 05:42] LABS: PLATELET MORPHOLOGY COMMENT NORMAL MORPHOLOGY (NORM); RBC MORPHOLOGY COMMENT SEE COMMENTS (NORM)
[2018-03-13 06:23] LABS: BLOOD UREA NITROGEN 4 mg/dL (7-22)
[2018-03-13] MEDS ORDERED: BUPRENORPHINE SL SCH (09:00)
[2018-03-13] MEDS ORDERED: NALOXONE SL SCH (09:00)
[2018-03-13] MEDS ORDERED: BENZONATATE 200 MG CAPSULE PO PRN (09:12)
--- NOTE | 2018-03-13 09:12 | PDOC(PROG) ---
Interval History: Patient clinically feels about the same from respiratory standpoint positive for cough oxygen requirements do not go up. Objective : Data - Labs CBC and BMP: 03/13/18 03:58 03/13/18 03:58 Objective : Exam - General General Appearance: Cooperative - Respiratory Respiratory Exam: Rales, Rhonci, Crackles, Coarse Breath Sounds - Cardiovascular Cardiovascular Exam: RRR, No Murmur, No Clicks, No Gallops, No Rubs, PMI Non-Displaced - GI/Abdominal GI/Abdominal Exam: Normal Bowel Sounds, Non Tender, Non Distended, Soft, No Masses, No Hepatomegaly, No Splenomegaly, No Organomegaly - Extremities Extremities Exam: No Clubbing Present, No Edema Present, No Cyanosis Present - Neurological Neurological Exam: Alert, Oriented x 3, No Facial Droop, Speech Intact / Clear, Moves All Extremities Equally Assessment and Plan - Patient Problems (1) Atypical pneumonia Current Visit: Yes Status: Acute Comment: Continue ceftriaxone and Zithromax. Influenza A and B- strep pneumo negative Chanel antigen was sent. Oxygen requirements are staying the same continue current care Code(s): J18.9 - Pneumonia, unspecified organism (2) Pulmonary infiltrates Current Visit: Yes Status: Acute Code(s): R91.8 - Other nonspecific abnormal finding of lung field (3) Anemia Current Visit: Yes Status: Chronic Comment: This is chronic in nature, low iron patient received iron infusion last week hemoglobin drifted below 7 patient is being transfused 1 unit of packed red blood cells. Etiology still unknown other than iron deficiency anemia will need GI workup once discharged from the hospital Code(s): D64.9 - Anemia, unspecified
[2018-03-13] MEDS: DULOXETINE 30 MG CAPSULE PO SCH (09:32)
[2018-03-13] MEDS: GABAPENTIN 100 MG CAPSULE PO SCH ×3 (09:32→20:04)
[2018-03-13] MEDS: Sodium Chloride 0.9% 1,000 ML PRIMARY IV SCH ×3 (13:51→20:11)
[2018-03-13 17:06] LABS: Hematocrit [HCT] 27.5 % (37.0-47.0); MEAN CORPUSCULAR HEMOGLOBIN 19.6 PG (27-31); MEAN CORPUSCULAR HGB CONC 29.1 g/dL (33-37); MEAN CORPUSCULAR VOLUME 67.2 FL (81-99); MEAN PLATELET VOLUME 9.2 FL (7.4-12.2); RED BLOOD COUNT 4.09 10^6/uL (4.20-5.40)
[2018-03-13] MEDS: HYDROXYZINE PAMOATE 25 MG CAPSULE PO PRN (20:04)
[2018-03-13] MEDS: BACLOFEN 20 MG TABLET PO SCH (20:05)
[2018-03-13] MEDS: cefTRIAXone Inj 2 GM in Sodium Chloride 0.9% 100 ML IV SCH (20:05)
[2018-03-13] MEDS: Promethazine Tab 25 MG TAB PO PRN (20:15)
[2018-03-13] MEDS: tiZANidine Tab 4 MG TAB PO SCH (20:47)
[2018-03-14] MEDS: IPRATROPIUM/ALBUTEROL SULFATE 3 ML NEB NEB PRN ×4 (00:55→20:18)
[2018-03-14] MEDS: Sodium Chloride 0.9% 1,000 ML PRIMARY IV SCH ×2 (04:33→18:41)
[2018-03-14] MEDS: ALBUTEROL SULFATE 8.5 GM HFA INHALER INH PRN (04:51)
[2018-03-14 04:57] LABS: BASOPHILS # (AUTO) 0.03 10*3/UL; BASOPHILS % (AUTO) 0.3 % (0-1); EOSINOPHILS % (AUTO) 3.9 % (0-8); Hematocrit [HCT] 27.9 % (37.0-47.0); Hemoglobin [HGB] 7.7 g/dL (12.0-16.0); LYMPHOCYTES # (AUTO) 2.95 10*3/uL; MEAN CORPUSCULAR HEMOGLOBIN 18.9 PG (27-31); MEAN CORPUSCULAR HGB CONC 27.6 g/dL (33-37); MEAN CORPUSCULAR VOLUME 68.4 FL (81-99); MONOCYTES # (AUTO) 0.52 10*3/UL (0.3-0.8); MONOCYTES % (AUTO) 5.1 % (5-15); NEUTROPHILS % (AUTO) 61.7 % (50-80); RED BLOOD COUNT 4.08 10^6/uL (4.20-5.40)
[2018-03-14 05:26] LABS: BLOOD UREA NITROGEN 4 mg/dL (7-22); BUN/CREATININE RATIO 6.66 (6-20); SERUM ALBUMIN 2.4 g/dL (3.5-4.8)
[2018-03-14 05:28] LABS: PLATELET MORPHOLOGY COMMENT NORMAL MORPHOLOGY (NORM); WBC MORPHOLOGY COMMENT NORMAL MORPHOLOGY (NORM)
[2018-03-14 05:30] LABS: RBC MORPHOLOGY COMMENT SEE COMMENTS (NORM)
--- NOTE | 2018-03-14 09:42 | PDOC(PROG) ---
Date of Service: 03/14/18 Time of Service: 09:30 Interval History: Subjective She said she is feeling rough because of the cough. There is improvement compared to when she came in. She still very short of breath when she walks from the bed to the bathroom. Her cough is dry. Nothing is coming up. There is some wheezing. Her symptoms started maybe a week ago. With cough, shortness of breath and some wheezing. She said she had anemia for a long time since she had the weight loss surgery. In addition to her duodenal switch surgery, she had a peritoneal shunt for pseudotumor cerebri. Objective : Data - Labs CBC and BMP: 03/14/18 04:36 03/14/18 04:36 Objective : Exam - General General Appearance: No Acute Distress, Cooperative - Head Head Exam: Normal Inspection - Eye Eye Exam: Normal Appearance - ENT ENT Exam: Normal Exam - Neck Neck Exam: Normal Inspection - Respiratory Additional Respiratory Exam Details: Few crackles at the bases with rhonchi and occasional wheezing. - Cardiovascular Cardiovascular Exam: RRR - GI/Abdominal GI/Abdominal Exam: Normal Bowel Sounds, Non Tender, Non Distended, Soft, No Organomegaly - Rectal Rectal Exam: Deferred - External Exam: Deferred Exam: Deferred - Extremities Extremities Exam: Normal Inspection - Back Back Exam: Normal Inspection - Neurological Neurological Exam: Alert, Oriented x 3, CN II-XII Intact, Speech Intact / Clear - Psychiatric Psychiatric Exam: Normal Affect - Integumentary Integumentary Exam: Normal Color Assessment and Plan - Patient Problems (1) Anemia Current Visit: Yes Status: Chronic Comment: There is iron deficiency anemia which is chronic. She got 1 unit of blood high think will give another unit of blood because she is still symptomatic. This may be also to underlying lung disease though. I think by raising her HB count maybe that would help her symptoms. Code(s): D64.9 - Anemia, unspecified (2) Atypical pneumonia Current Visit: Yes Status: Acute Comment: There is extensive pulmonary infiltrate. We'll send the CT to [facility] and discuss with them current management. Question addition of steroid. May send also Serology for autoimmune disease. Code(s): J18.9 - Pneumonia, unspecified organism
[2018-03-14] MEDS: GABAPENTIN 100 MG CAPSULE PO SCH ×3 (09:55→19:59)
[2018-03-14] MEDS: ASCORBIC ACID Chewable 500 MG TABLET PO SCH (09:55)
[2018-03-14] MEDS: DULOXETINE 30 MG CAPSULE PO SCH (09:55)
[2018-03-14] MEDS: Multivitamin Tab 1 TAB PO SCH (09:55)
[2018-03-14] MEDS ORDERED: IBUPROFEN 400 MG TABLET PO PRN (10:17)
[2018-03-14] MEDS ORDERED: ALBUTEROL SULFATE 2.5 MG/3 ML NEB PRN (10:58)
[2018-03-14] MEDS ORDERED: ALBUTEROL SULFATE 8.5 GM HFA INHALER INH PRN (10:58)
[2018-03-14] MEDS: methylPREDNISolone 125 MG/2 ML VIAL IV SCH ×3 (13:52→23:33)
[2018-03-14] MEDS: cefTRIAXone Inj 2 GM in Sodium Chloride 0.9% 100 ML IV SCH (19:58)
[2018-03-14] MEDS: BACLOFEN 20 MG TABLET PO SCH (19:59)
[2018-03-14] MEDS: HYDROXYZINE PAMOATE 25 MG CAPSULE PO PRN (19:59)
[2018-03-14] MEDS: tiZANidine Tab 4 MG TAB PO SCH (19:59)
[2018-03-14] MEDS: Promethazine Tab 25 MG TAB PO PRN (20:00)
[2018-03-14] MEDS ORDERED: NALOXONE SL SCH ×2 (21:00)
[2018-03-14] MEDS ORDERED: BUPRENORPHINE SL SCH ×2 (21:00)
[2018-03-15] MEDS: methylPREDNISolone 125 MG/2 ML VIAL IV SCH (04:33)
[2018-03-15 05:53] LABS: Hematocrit [HCT] 34.6 % (37.0-47.0); Hemoglobin [HGB] 10.2 g/dL (12.0-16.0); MEAN CORPUSCULAR HEMOGLOBIN 20.4 PG (27-31); MEAN CORPUSCULAR HGB CONC 29.5 g/dL (33-37); MEAN CORPUSCULAR VOLUME 69.3 FL (81-99); RED BLOOD COUNT 4.99 10^6/uL (4.20-5.40)
[2018-03-15] MEDS: IPRATROPIUM/ALBUTEROL SULFATE 3 ML NEB NEB PRN (06:02)
[2018-03-15 06:05] LABS: BLOOD UREA NITROGEN 6 mg/dL (7-22); SERUM ALBUMIN 2.9 g/dL (3.5-4.8)
[2018-03-15 06:23] LABS: BAND NEUTROPHILS % 2 % (0-10); BASOPHILS % (MANUAL) 0 % (0-1); EOSINOPHILS % (MANUAL) 0 % (0-8); MONOCYTES % (MANUAL) 2 % (0-12); NEUTROPHILS % (MANUAL) 78 % (50-80); PLATELET MORPHOLOGY COMMENT NORMAL MORPHOLOGY (NORM); WBC MORPHOLOGY COMMENT SEE COMMENTS (NORM)
[2018-03-15 06:24] LABS: RBC MORPHOLOGY COMMENT SEE COMMENTS (NORM)
--- NOTE | 2018-03-15 08:15 | PDOC(PROG) ---
Date of Service: 03/15/18 Time of Service: 08:00 Interval History: Subjective Patient feels better today compared to yesterday. Her cough improved. Her shortness of breath and wheezing improved. Objective : Data - Labs CBC and BMP: 03/15/18 04:40 03/15/18 04:40 Objective : Exam - General General Appearance: No Acute Distress, Cooperative - Head Head Exam: Normal Inspection - Eye Eye Exam: Normal Appearance - ENT ENT Exam: Normal Exam - Neck Neck Exam: Normal Inspection - Respiratory Additional Respiratory Exam Details: Minimal crackles no wheezing today. Much better than yesterday. - Cardiovascular Cardiovascular Exam: RRR - GI/Abdominal GI/Abdominal Exam: Normal Bowel Sounds, Non Tender, Non Distended, Soft, No Organomegaly - Rectal Rectal Exam: Deferred - External Exam: Deferred Exam: Deferred - Extremities Extremities Exam: Normal Inspection - Back Back Exam: Normal Inspection - Neurological Neurological Exam: Alert, Oriented x 3, CN II-XII Intact, No Facial Droop, Speech Intact / Clear - Psychiatric Psychiatric Exam: Normal Affect Assessment and Plan - Patient Problems (1) Anemia Current Visit: Yes Status: Chronic Comment: She is status post 2 units of blood. Her hemoglobin is stable. I don't think will give her more units of blood. Code(s): D64.9 - Anemia, unspecified (2) Atypical pneumonia Current Visit: Yes Status: Acute Comment: Continue current antibiotics with Zithromax and Rocephin. We did her on steroid based on my discussion with the phone triage specialist yesterday. Continue bronchodilator. I think we can take her out of the ICU. We'll ask her to the do more today in terms of mobility and see what she is able to do. She declined echo yesterday I did explain the reason for the echo however she still doesn't want it. Code(s): J18.9 - Pneumonia, unspecified organism
[2018-03-15 08:18] VITALS: BP 152/92; RESP 18; TEMP 98.5
[2018-03-15] MEDS: ASCORBIC ACID Chewable 500 MG TABLET PO SCH (08:22)
[2018-03-15] MEDS: DULOXETINE 30 MG CAPSULE PO SCH (08:22)
[2018-03-15] MEDS: Multivitamin Tab 1 TAB PO SCH (08:22)
[2018-03-15] MEDS: GABAPENTIN 100 MG CAPSULE PO SCH (08:22)
[2018-03-15] MEDS ORDERED: ALBUTEROL SULFATE 2.5 MG/3 ML NEB PRN (08:37)
[2018-03-15] MEDS ORDERED: ALBUTEROL SULFATE 8.5 GM HFA INHALER INH PRN (08:37)
[2018-03-15] MEDS ORDERED: Promethazine Tab 25 MG TAB PO PRN (08:37)
[2018-03-15] MEDS ORDERED: BENZONATATE 200 MG CAPSULE PO PRN (08:37)
[2018-03-15] MEDS ORDERED: HYDROXYZINE PAMOATE 25 MG CAPSULE PO PRN (08:37)
[2018-03-15] MEDS ORDERED: IPRATROPIUM/ALBUTEROL SULFATE 3 ML NEB NEB PRN (08:37)
[2018-03-15] MEDS ORDERED: LIDOCAINE W/ SODIUM BICARB 0.5 ML SYR SUBD PRN (08:37)
[2018-03-15] MEDS ORDERED: ASCORBIC ACID Chewable 500 MG TABLET PO SCH (09:00)
[2018-03-15] MEDS ORDERED: DULOXETINE 30 MG CAPSULE PO SCH (09:00)
[2018-03-15] MEDS ORDERED: GABAPENTIN 100 MG CAPSULE PO SCH (09:00)
[2018-03-15] MEDS ORDERED: Multivitamin Tab 1 TAB PO SCH (09:00)
[2018-03-15] MEDS ORDERED: methylPREDNISolone 125 MG/2 ML VIAL IV SCH (11:00)
--- NOTE | 2018-03-15 11:37 | DCSUMMARY ---
Hospitalization Summary Admit Date: 03/12/2018 Discharge Date: 03/15/18 Hospital Course: Discharge diagnoses 1. Diffuse bilateral airspace disease, treated as pneumonia. She was also started on steroid. 2. Acute hypoxic respiratory failure secondary to the above 3. History of pseudotumor cerebri status post peritoneal shunt 4. History of duodenal switch surgery 5. Iron deficiency anemia status post 2 units of blood transfusion Hospital course This is a 42 years old female with history of pseudotumor cerebri, history of previous weight loss surgery with duodenal switch surgery who came into the hospital with history of cough and shortness of breath. She presented on the was given Rocephin and Zithromax advised admission however she refused. She came back the next day feeling worse and patient was admitted to the hospital by Dr. Georges please see his note. Patient was started on IV antibiotics. Patient was watched in the ICU. I saw the patient on March the she was still feeling rough, she had some crackles and wheezing. I did send the CT scan to [facility], I spoke with Dr. Long who reviewed the CT suggested starting steroid. The patient declined an echo. The next day she felt a lot better compared to the day before. Lungs examination seems much better compared to the day before. 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 However later on she wanted to talk to me and we talked about her advanced lung inflammation/infection wanted her to stay another day however she wanted to leave and she signed AMA. We did discharge her on slow tapering of steroid and oral antibiotics. She will follow-up with her primary in a week. She did have iron deficiency anemia secondary likely to her gastric bypass surgery and she received 2 units of blood. she is to continue talking the zithromax prescribed by the ER on 03/11/2018 Discharge instruction Diet regular Activity as tolerated Medications Current Medication(s) Medication Instructions Recorded Confirmed Type buprenorphine 8 mg-naloxone 2 mg 1 ea SL TID-QID ea 11/29/16 03/12/18 History sublingual film baclofen 10 mg tablet 10 mg PO QHS #30 tab 02/05/18 03/12/18 Rx duloxetine 30 mg capsule,delayed 30 mg PO QDAY #30 cap 02/05/18 03/12/18 Rx release hydroxyzine pamoate 50 mg capsule 50 mg PO QHS PRN #30 cap 02/05/18 03/12/18 Rx ketorolac 60 mg/2 mL intramuscular 60 mg IM QID PRN #3 vial 02/05/18 03/12/18 Rx solution promethazine 25 mg tablet 25 mg PO Q6H PRN #120 tab 02/05/18 03/12/18 Rx sumatriptan 50 mg tablet 50 mg PO Q2-4H PRN #10 tab 02/05/18 03/12/18 Rx syringe with needle 1 mL 25 gauge See Rx Instructions MISCELLANEOUS 02/05/18 03/12/18 Rx x 1" QD PRN #10 box tizanidine 4 mg capsule 4 mg PO QD #90 cap 02/05/18 03/12/18 Rx gabapentin 100 mg capsule 200 mg PO TID #90 cap 02/23/18 03/12/18 Rx Syringe,Safety with Needle,3Ml 0 unit .ROUTE .MEDSUPPLY 03/11/18 03/12/18 History [Ulticare Safety Syringe] albuterol sulfate HFA 90 1 puff INH Q6H PRN #18 g 03/12/18 03/12/18 Rx mcg/actuation aerosol inhaler Albuterol Neb Soln 0.083% 2.5 mg NEB RTQ4H PRN vial.neb 03/15/18 Rx Cefdinir 300 mg PO BID #8 cap 03/15/18 Rx predniSONE Tab [Deltasone Tab] 50 mg PO DAILY #38 tab 03/15/18 Rx Follow-up with PCP next week Exam - Vitals Vital Signs: Vital Signs Temperature 98.5 F Temperature Source Oral Pulse Rate [Pulse Oximeter] 55 Pulse Rate 68 Respiratory Rate 18 Blood Pressure [Right Arm] 152/92 Blood Pressure 181/94 Pulse Ox 97 Oxygen Flow Rate 2 Oxygen Delivery Method Nasal Cannula Height 5 ft 2 in Weight 152 lb 3.2 oz Patient Problems - Patient Problem List (1) Anemia Status: Chronic Code(s): D64.9 - Anemia, unspecified Category: Medical (2) Atypical pneumonia Status: Acute Code(s): J18.9 - Pneumonia, unspecified organism Category: Medical
[2018-03-15 12:45] VITALS: O2SAT 95
[2018-03-15 13:44] LABS: MYELOPEROXIDASE AB <0.2 U
[2018-03-15] MEDS ORDERED: cefTRIAXone Inj 2 GM in Sodium Chloride 0.9% 100 ML IV SCH (20:00)
[2018-03-15] MEDS ORDERED: BACLOFEN 20 MG TABLET PO SCH (21:00)
[2018-03-15] MEDS ORDERED: BUPRENORPHINE SL SCH (21:00)
[2018-03-15] MEDS ORDERED: tiZANidine Tab 4 MG TAB PO SCH (21:00)
[2018-03-15] MEDS ORDERED: NALOXONE SL SCH (21:00)
== END 2018-03-15 13:12 | disposition left against medical advice (07) | DRG 193 ==
LOC: ER 16:15 → ICU 18:54 → MED/SURG 03-15 08:04
PROVIDERS: ADMIT Internal Medicine; ATTEND Internal Medicine